=== PATIENT | female | born 1945 | race Caucasian/White ===

== ENCOUNTER → 2022-12-02 11:23 | Outpatient (BNVA) | payer MEDICARE, MEDICAID, SELFPAY | PROVIDERS: PCP Family Medicine; Visit Provider Family Medicine | DX: M17.0 Bilateral primary osteoarthritis of knee (principal); I25.10 Atherosclerotic heart disease of native coronary artery without angina pectoris; E78.5 Hyperlipidemia, unspecified; E03.9 Hypothyroidism, unspecified; E11.9 Type 2 diabetes mellitus without complications; M19.012 Primary osteoarthritis, left shoulder; I10 Essential (primary) hypertension; M19.041 Primary osteoarthritis, right hand; M19.011 Primary osteoarthritis, right shoulder; Z98.41 Cataract extraction status, right eye; M19.042 Primary osteoarthritis, left hand; Z98.42 Cataract extraction status, left eye | CPT/HCPCS: 80053; 80061; 83036; 84443; 85025 ==

== ENCOUNTER → 2024-03-16 14:27 | Outpatient (BNVA) | payer MEDICARE, MEDICAID, SELFPAY | PROVIDERS: PCP Family Medicine; Visit Provider Nurse Practitioner Family | DX: R06.02 Shortness of breath (principal); I25.10 Atherosclerotic heart disease of native coronary artery without angina pectoris | CPT/HCPCS: 71046; 80053; 82962; 83036; 83880; 85025; 87426; 93005 ==

== ENCOUNTER 2024-03-31 09:40 | Outpatient (CLI) | payer MEDICARE, SELFPAY ==
--- NOTE | 2024-03-31 10:15 | USCV_ITS ---
Magalys Amezquita Age: 78 Gender: F : 1945 Exam Date: 03/31/2024 10:29 Ordering Phys: ERIKA Montenegro APRN PIT HAND Technologist: Nilo Godinez [place] [facility] [place]: cardiac murmur BP: 160 / 70 HR: 67 Rhythm: Sinus Technical Quality: Adequate MEASUREMENTS (Male / Female) Normal Values 2D ECHO LV Diastolic Diameter PLAX 5.1 cm 4.2 - 5.9 / 3.9 - 5.3 cm IVS Diastolic Thickness 1.1 cm 0.6 - 1.0 / 0.6 - 0.9 cm IVS Systolic Thickness 1.8 cm LVPW Diastolic Thickness 1.3 cm 0.6 - 1.0 / 0.6 - 0.9 cm LVPW Systolic Thickness 1.9 cm LVOT Diameter 2.1 cm LV Ejection Fraction 2D Teich 68.8 % LV Ejection Fraction MOD 2C 54.7 % LV Ejection Fraction 2C AL 55.1 % LA Diameter 3.9 cm RA Systolic Volume 4C AL 43.7 ml RA Systolic Volume 4C MOD 41.4 ml LA Sys Volume AL 51.6 cm cubed LA Sys Volume Index AL 24.7 cm cubed/m squared Aorta at Sinotubular Diameter 2.8 cm IVC Diameter 2.0 cm M-MODE LA Ao Ratio MM 1.3 AV Cusp Separation MM 1.1 cm DOPPLER AV Peak Velocity 165.7 cm/s LVOT Peak Velocity 116.0 cm/s AV Area Cont Eq vti 2.5 cm squared AV Area Cont Eq pk 2.4 cm squared MV Peak Velocity 108.0 cm/s MV Area PHT 4.2 cm squared Mitral E to A Ratio 0.9 TV Peak Velocity 148.3 cm/s TR Peak Velocity 156.0 cm/s TR Peak Gradient 9.7 mmHg TR Mean Velocity 112.0 cm/s TR Mean Gradient 5.6 mmHg TR Velocity Time Integral 33.9 cm PV Peak Velocity 99.7 cm/s RV Ejection Time 0.3 s FINDINGS Left Ventricle Left ventricle is normal in size. LV systolic function is normal with EF of 55 to 60%. No regional wall motion abnormalities are seen. Grade 1 diastolic dysfunction. Right Ventricle Normal in size and function Right Atrium Normal in size Left Atrium Normal in size Mitral Valve Mild prolapse of anterior mitral valve leaflet. Mild mitral regurgitation Aortic Valve Structurally normal aortic valve. No significant stenosis stenosis or regurgitation. Tricuspid Valve Insufficient TR jet to calculate RVSP Pulmonic Valve Not well visualized Pericardium Normal Aorta Normal in size IVC Appears to be normal CONCLUSIONS LV systolic function is normal with EF of 55 to 60%. Grade 1 diastolic dysfunction. Mild prolapse of anterior mitral valve leaflet. Mild mitral regurgitation. No comparison studies are available. Abel Dupree MD (Electronically Signed) Final Date: 09 Apr 2024 14:02 S
== END 2024-03-31 09:41 | disposition home or self-care (01) ==
LOC: RAD 09:43
PROVIDERS: PCP Nurse Practitioner Family; Visit Provider Nurse Practitioner Family
DX: R01.1 Cardiac murmur, unspecified (principal); R06.02 Shortness of breath; I25.10 Atherosclerotic heart disease of native coronary artery without angina pectoris; I34.0 Nonrheumatic mitral (valve) insufficiency
CPT/HCPCS: 93306

== ENCOUNTER → 2024-11-17 11:11 | Outpatient (BNVA) | payer MEDICARE, MEDICAID, SELFPAY | PROVIDERS: PCP Nurse Practitioner Family; Visit Provider Internal Medicine | DX: E11.9 Type 2 diabetes mellitus without complications (principal); E03.9 Hypothyroidism, unspecified; E78.5 Hyperlipidemia, unspecified | CPT/HCPCS: 99204 ==

== ENCOUNTER → 2025-02-19 10:49 | Outpatient (BNVA) | payer MEDICARE, MEDICAID, SELFPAY | PROVIDERS: PCP Nurse Practitioner Family; Visit Provider Internal Medicine | DX: E03.9 Hypothyroidism, unspecified (principal); E78.5 Hyperlipidemia, unspecified; E11.9 Type 2 diabetes mellitus without complications | CPT/HCPCS: 99214 ==

== ENCOUNTER → 2025-03-14 11:52 | Outpatient (BNVA) | payer MEDICARE, MEDICAID, SELFPAY | PROVIDERS: PCP Nurse Practitioner Family; Visit Provider Internal Medicine | DX: E11.9 Type 2 diabetes mellitus without complications (principal); E78.5 Hyperlipidemia, unspecified; E03.9 Hypothyroidism, unspecified | CPT/HCPCS: 99214 ==

== ENCOUNTER → 2025-07-17 10:43 | Outpatient (BNVA) | payer MEDICARE, MEDICAID, SELFPAY | PROVIDERS: PCP Nurse Practitioner Family; Visit Provider Internal Medicine | DX: E11.9 Type 2 diabetes mellitus without complications (principal); E03.9 Hypothyroidism, unspecified; E78.5 Hyperlipidemia, unspecified | CPT/HCPCS: 99214 ==

== ENCOUNTER 2025-08-13 11:41 | Outpatient (CLI) | payer MEDICARE, MEDICAID, SELFPAY ==
[2025-08-13 13:02] LABS: Hematocrit 33.0 % (36-47); Hemoglobin 10.60 g/dL (11.27-16.99); Mean Corpuscular HGB Conc 32.1 g/dL (30-55); Mean Corpuscular Hemoglobin 30.2 pg (27-33); Mean Corpuscular Volume 94.0 fl (85-98); Nucleated Red Blood Cells % 0 %; Platelet Count 195 10^3/cmm (157-399); Red Blood Count 3.51 10^6/uL (3.85-5.65); White Blood Count 9.69 10^3/uL (3.29-11.43)
[2025-08-13 13:19] LABS: Albumin Level 4.1 g/dL (3.5-5.2); Anion Gap 14.4 (5-19); Blood Urea Nitrogen 23 mg/dL (8-23); Calcium 7.9 mg/dL (8.5-10.5); Carbon Dioxide 26 mmol/L (22-29); Chloride 104 mmol/L (98-107); Glucose 150 mg/dL (65-115); Potassium 4.4 mmol/L (3.5-5.1); Sodium 140 mmol/L (136-145)
[2025-08-13 13:28] LABS: Creatinine Urine, Random 4 mg/dL (28-217); Microalbum Creatinine Ratio Ur 250 mg/dL (0-20)
== END 2025-08-13 11:42 | disposition home or self-care (01) ==
PROVIDERS: PCP Nurse Practitioner Family; Visit Provider Internal Medicine Nephrology
DX: N18.4 Chronic kidney disease, stage 4 (severe) (principal)
CPT/HCPCS: 36415; 80069; 82044; 85025